=== PATIENT | female | born 1995 | race Caucasian/White ===

== ENCOUNTER 2020-08-08 16:30 | Inpatient (IN) | payer OTHER ==
[2020-08-08 17:33] LABS: HEMOGLOBIN 11.6 gm/dl (12.3-15.3); RED BLOOD COUNT 3.75 M/UL (4.00-5.10); WHITE BLOOD COUNT 8.9 K/UL (4.5-11.0)
[2020-08-08] MEDS ORDERED: PRENATAL VITAM1 EAC8 PO (18:27)
[2020-08-08] MEDS ORDERED: OXYCODONE HCL15 MG PO (19:09)
[2020-08-08] MEDS ORDERED: PRENATAL TABLE1 EAC3 PO (19:10)
[2020-08-10 06:24] LABS: HEMOGLOBIN 10.4 gm/dl (12.3-15.3)
== END 2020-08-10 19:42 | disposition home or self-care (01) | DRG 807 ==
LOC: GENOP 16:30 → OB 16:58
PROVIDERS: ADMIT Obstetrics & Gynecology
PROC: 4A1HX4Z Monitoring of Products of Conception, Cardiac Electrical Activity, External Approach (ICD-10-PCS; 2020-08-08)
PROC: 10E0XZZ Delivery of Products of Conception, External Approach (ICD-10-PCS; principal; 2020-08-09)
DX: O98.42 Viral hepatitis complicating childbirth (principal); Z37.0 Single live birth; Z3A.38 38 weeks gestation of pregnancy; B19.20 Unspecified viral hepatitis C without hepatic coma; O99.02 Anemia complicating childbirth; J45.909 Unspecified asthma, uncomplicated; F41.9 Anxiety disorder, unspecified; F32.9 Major depressive disorder, single episode, unspecified; Z20.822 Contact with and (suspected) exposure to COVID-19
CPT/HCPCS: 36415; 51702; 80307; 81001; 82800; 83518; 85014; 85018; 85025; 87635; J2405; J2590; J7120